=== PATIENT | male | born 1935 | race Caucasian/White ===

== ENCOUNTER 2016-11-13 22:09 | Inpatient (IN) | payer OTHER ==
[2016-11-13 22:24] VITALS: BMI 21.5
--- NOTE | 2016-11-13 23:37 | PDOC ---
History of Present Illness - General History Source: Patient, Family (Son) Exam Limitations: No Limitations - History of Present Illness Initial Comments: 11/14/16 00:14 The patient is an 81 year old male, with a significant past medical history of hypertension, diabetes, atrial fibrillation (on Warfarin) and coronary artery disease s/p stents, who presents to the emergency department with dizziness over the past couple of days. The patient describes the dizziness as if the room is spinning. The patient lives in [place] although he has been in [place] for the past 5 weeks visiting his son. The patient was scheduled to return to [place] tomorrow but given that he has been increasingly dizzy over the past couple of days, the patients son brought him to the ED for evaluation and cancelled his flight. The patients son is at the bedside. The patient endorses chills, a dry cough and nausea but denies any fevers, vomiting, diarrhea, dysuria or any recent illnesses. The patient reports that he has not been compliant with his Warfarin for the past 2 weeks because he ran out of it and was unable to refill it in [place]. Allergies: None reported. Past Surgical History: Cardiac Stent. Social History: Non smoker. Denies alcohol or drug use. PCP: In [place]. <Missy Rajan - Last Filed: 11/14/16 01:13> <Shalom Wells - Last Filed: 11/14/16 02:53> - General Chief Complaint: Lightheaded Stated Complaint: DIZZINESS Time Seen by Provider: 11/13/16 23:12 Past History <Missy Rajan - Last Filed: 11/14/16 01:13> - Past Medical History Cardiac Disorders: Yes Diabetes: Yes HTN: Yes - Psycho/Social/Smoking Cessation Hx Suicidal Ideation: No Smoking History: Never smoked Have you smoked in the past 12 months: No Information on smoking cessation initiated: No Hx Alcohol Use: No Drug/Substance Use Hx: No <Shalom Wells - Last Filed: 11/14/16 02:53> - Past Medical History Allergies/Adverse Reactions: Allergies Allergy/AdvReac Type Severity Reaction Status Date / Time No Known Allergies Allergy Verified 11/13/16 22:22 Home Medications: Ambulatory Orders Digoxin [Lanoxin -] 0.25 mg PO DAILY 11/14/16 Metformin HCl [Glucophage -] 850 mg PO DAILY 11/14/16 Metoprolol Succinate [Toprol Xl -] 50 mg PO DAILY 11/14/16 Review of Systems - Review of Systems Able to Perform ROS?: Yes Comments:: 11/14/16 00:15 CONSTITUTIONAL: +Chills. No fever, no fatigue EYES: No visual changes ENT: No ear pain, no sore throat CARDIOVASCULAR: No chest pain, no palpitations RESPIRATORY: +Cough. No SOB GI: +Nausea. No abdominal pain, no vomiting, no constipation, no diarrhea GENITOURINARY: No dysuria, no frequency, no hematuria MUSKULOSKELETAL: No back pain, no joint pain, no myalgias SKIN: No rash NEURO: +Dizziness, vertigo. No headache <Missy Rajan - Last Filed: 11/14/16 01:13> *Physical Exam - Vital Signs Last Vital Signs Temp Pulse Resp BP Pulse Ox 97.7 F 56 L 14 115/61 97 11/13/16 22:22 11/13/16 22:22 11/13/16 22:22 11/13/16 22:22 11/13/16 22:22 - Physical Exam Comments: 11/14/16 00:19 CONSTITUTIONAL: Well-appearing; well-nourished; in no apparent distress. HEAD: Normocephalic; atraumatic. EYES: No nystagmus. PERRL; EOM intact. ENMT: External appears normal; normal oropharynx. NECK: Supple; non-tender; no cervical lymphadenopathy. CARD: Irregularly irregular, tachycardic. Normal S1, S2; no murmurs, rubs, or gallops. RESP: Normal chest excursion with respiration; breath sounds clear and equal bilaterally; no wheezes, rhonchi, or rales. ABD: Soft, non-distended; non-tender; no palpable organomegaly, no palpable hernias. EXT: Normal ROM in all four extremities; non-tender to palpation; distal pulses intact. SKIN: Warm, dry, no rash. <Missy Rajan - Last Filed: 11/14/16 01:13> - Vital Signs Last Vital Signs Temp Pulse Resp BP Pulse Ox 97.7 F 56 L 14 115/61 97 11/13/16 22:22 11/13/16 22:22 11/13/16 22:22 11/13/16 22:22 11/13/16 22:22 - Physical Exam Comments: NEURO: Cranial nerves II through XII are grossly intact; motor is 5 of 54; no pronation drift; no dysmetria; finger to nose is normal bilaterally; heel-to- giron is normal bilaterally; gait-deferred. <Shalom Wells - Last Filed: 11/14/16 02:53> Heart Score/ECG Review #1 ECG reviewed & interpreted by me at: 00:29 (Vent Rate: 111 bpm. Atrial fibrillation with rapid ventricular response with premature ventricular or aberrantly conducted complexes. Nonspecific T wave abnormality.) <Missy Rajan - Last Filed: 11/14/16 01:13> ED Treatment Course - LABORATORY CBC & Chemistry Diagram: 11/14/16 00:45 11/14/16 00:45 <Missy Rajan - Last Filed: 11/14/16 01:13> - LABORATORY CBC & Chemistry Diagram: 11/14/16 00:45 11/14/16 00:45 <Shalom Wells - Last Filed: 11/14/16 02:53> Medical Decision Making - Medical Decision Making 11/14/16 02:42 Patient is an 81-year-old male with history of diabetes, and atrial fibrillation who presents with dizziness. Differential diagnoses includes vertigo versus near syncope. Patient reports intermittent vertiginous symptoms. In the ER, patient is awake and alert, mildly tachycardic with EKG revealing atrial fibrillation with ventricular rate of 111. Neuro exam reveals no focal deficits. There is no evidence of cerebellar dysfunction. CT of head shows no evidence of acute intracranial pathology. Chest x-ray reveals no evidence of cardiomegaly or infiltrate or effusion. CBC reveals moderate anemia with hematocrit of 25 (stool guaiac is currently pending). CMP reveals normal renal function and negative cardiac enzymes at this time. Patient has been noncompliant with his Coumadin regimen for the past 2 weeks. Will hold off on initiation of anticoagulation pending results of the stool guaiac. We will consider packed RBC transfusion. <Shalom Wells - Last Filed: 11/14/16 02:53> *DC/Admit/Observation/Transfer - Attestations Scribe Attestion: 11/13/16 23:41 Documentation prepared by Missy Rajan, acting as medical accounting clerk for Shalom Wells MD. <Missy Rajan - Last Filed: 11/14/16 01:13> - Discharge Dispostion Admit: Yes - Attestations Physician Attestion: 11/14/16 02:41 The documentation was prepared by the scribe under my direct supervision. I have reviewed the documentation which correctly represents the findings, medical decision-making and critical action taken by me. <Shalom Wells - Last Filed: 11/14/16 02:53> Diagnosis at time of Disposition: Pre-syncope, Vertigo Anemia Qualifiers: Anemia type: iron deficiency Iron deficiency anemia type: unspecified iron deficiency Qualified Code(s): D50.9 - Iron deficiency anemia, unspecified Atrial fibrillation Qualifiers: Atrial fibrillation type: chronic Qualified Code(s): I48.2 - Chronic atrial fibrillation - Discharge Dispostion Condition at time of disposition: Fair
[2016-11-14] MEDS ORDERED: SODIUM CHLORIDE 500 ML IV STA (00:49)
[2016-11-14 01:10] LABS: BASOPHIL 0.6 % (0-2.0); EOSINOPHIL 0.2 % (0-4.5); MCH 25.8 pg (25.7-33.7); MCHC 32.9 g/dl (32.0-35.9); MEAN CELL VOLUME 78.4 fl (80-96); NEUTROPHILS 83.7 % (42.8-82.8); PLATELET COUNT 411 K/MM3 (134-434); RDW 16.1 % (11.9-15.9); WHITE BLOOD COUNT 9.7 K/mm3 (4.0-10.0)
[2016-11-14 01:12] LABS: INR 1.89 (0.82-1.09); PROTHROMBIN TIME (PATIENT) 21.1 SEC (9.98-11.88)
[2016-11-14] MEDS ORDERED: MECLIZINE HCL 25 MG TABLET (FP) PO ONE (01:15)
[2016-11-14] MEDS ORDERED: MECLIZINE HCL 25 MG TABLET (FP) ONE (01:16)
[2016-11-14 01:24] LABS: ALBUMIN 2.3 g/dl (3.4-5.0); ANION GAP 9 (8-16); BILIRUBIN,TOTAL 0.3 mg/dL (0.2-1.0); CALCIUM 8.6 mg/dL (8.5-10.1); CO2 28 mmol/L (21-32); COCKROFT - GAULT 94.49; CREATININE 0.6 mg/dL (0.7-1.3); GLUCOSE,RANDOM 168 mg/dL (74-106); SGOT/AST 35 U/L (15-37); SGPT/ALT 66 U/L (12-78); TOT PROT 7.8 g/dl (6.4-8.2)
[2016-11-14 01:27] LABS: ALK PHOS 127 U/L (45-117); TROPONIN I < 0.02 ng/ml (0.00-0.05)
[2016-11-14] MEDS ORDERED: METOPROLOL TARTRATE 50 MG TABLET (FP) PO ONE (02:47)
[2016-11-14] MEDS ORDERED: METOPROLOL TARTRATE 25 MG TABLET (FP) ONE (03:02)
--- NOTE | 2016-11-14 03:20 | HP ---
CHIEF COMPLAINT: dizziness PCP: in [place] HISTORY OF PRESENT ILLNESS: This is a 81 year old male with a past medical history of atrial fibrillation, HTN, HLD, CAD s/p stent, DM, BPH who presents to the ED with c/o dizziness and not feeling well. Has been having intermittent episodes dizziness for the past couple of weeks. He is from [place] and is here visiting his son for the past 5 weeks. Son notes that pt does not drink well. Reports constipation at times. He is supposed to be on coumadin for his atrial fibrillation but he ran out 2 weeks ago and his doctor was unwilling to prescribe to [place]. Son reports that he notices his father has lost weight. He states he visits him every 2-3 months and noticed in August that he looked thinner from his previous visit in June. Pt reports that he weighed about 170 pounds in August and now weighs 148. He denies chest pain, SOB, palpitations, abdominal pain, hematochezia, melena, vomiting. ER course was notable for: (1) Hgb 8.4 (2) stool occ negative (3) CT head negative Recent Travel: traveled here from [place] 5 weeks ago PAST MEDICAL HISTORY: HTN HLD Atrial fibrillation on coumadin DM w/ neuropathy, previously on gabapentin but pt stopped as it wasn't helping CAD s/p stent x 1 BPH PAST SURGICAL HISTORY: L hernia repair Social History: Smoking: pt denies Alcohol: pt denies Drugs: pt denies Family History: father age 82, cancer, unknown type mother age 78, unknown etiology 11 brothers and sisters, no known medical problems Allergies No Known Allergies Allergy (Verified 11/13/16 22:22) Home Medications 3 Medication Instructions Recorded Digoxin [Lanoxin -] 0.25 mg PO DAILY 11/14/16 Finasteride 5 mg PO DAILY 11/14/16 Metformin HCl [Glucophage -] 850 mg PO DAILY 11/14/16 Metoprolol Succinate [Toprol Xl -] 50 mg PO DAILY 11/14/16 Simvastatin [Zocor] 80 mg PO HS 11/14/16 Tamsulosin HCl [Flomax] 0.4 mg PO DAILY 11/14/16 REVIEW OF SYSTEMS CONSTITUTIONAL: Present: generalized weakness, malaise, weight change Absent: fever, chills, diaphoresis, loss of appetite HEENT: Absent: rhinorrhea, nasal congestion, throat pain, throat swelling, difficulty swallowing, mouth swelling, ear pain, eye pain, visual changes CARDIOVASCULAR: Absent: chest pain, syncope, palpitations, irregular heart rate, lightheadedness , peripheral edema RESPIRATORY: Absent: cough, shortness of breath, dyspnea with exertion, orthopnea, wheezing, stridor, hemoptysis GASTROINTESTINAL: Absent: abdominal pain, abdominal distension, nausea, vomiting, diarrhea, constipation, melena, hematochezia GENITOURINARY: Absent: dysuria, frequency, urgency, hesitancy, hematuria, flank pain, genital pain MUSCULOSKELETAL: Absent: myalgia, arthralgia, joint swelling, back pain, neck pain SKIN: Absent: rash, itching, pallor HEMATOLOGIC/IMMUNOLOGIC: Absent: easy bleeding, easy bruising, lymphadenopathy, frequent infections ENDOCRINE: Absent: unexplained weight gain, unexplained weight loss, heat intolerance, cold intolerance NEUROLOGIC: Present: dizziness Absent: headache, focal weakness or paresthesias, unsteady gait, seizure, mental status changes, bladder or bowel incontinence PSYCHIATRIC: Absent: anxiety, depression, suicidal or homicidal ideation, hallucinations. PHYSICAL EXAMINATION Vital Signs - 24 hr 3 11/13/16 11/14/16 22:22 00:53 Temperature 97.7 F Pulse Rate 56 L Respiratory 14 Rate Blood Pressure 115/61 O2 Sat by Pulse 97 97 Oximetry (%) GENERAL: Awake, alert, and fully oriented, in no acute distress. Appears pale HEAD: Normal with no signs of trauma. EYES: Pupils equal, round and reactive to light, extraocular movements intact, sclera anicteric, conjunctiva pale, + watery, + crusting on eyelids EARS, NOSE, THROAT: Ears normal, nares patent, oropharynx clear without exudates. Moist mucous membranes. lips dry NECK: Normal range of motion, supple without lymphadenopathy, JVD, or masses. LUNGS: Breath sounds equal, clear to auscultation bilaterally. No wheezes, and no crackles. No accessory muscle use. HEART: Regular rate and rhythm, normal S1 and S2 without murmur, rub or gallop. ABDOMEN: Soft, nontender, not distended, normoactive bowel sounds, no guarding, no rebound, no masses. No hepatomegaly or splenomegaly. MUSCULOSKELETAL: Normal range of motion at all joints. No bony deformities or tenderness. No CVA tenderness. UPPER EXTREMITIES: 2+ pulses, warm, well-perfused. No cyanosis. No clubbing. No peripheral edema. LOWER EXTREMITIES: 2+ pulses, warm, well-perfused. No calf tenderness. No peripheral edema. NEUROLOGICAL: Cranial nerves II-XII intact. Normal speech. Gait not observed PSYCHIATRIC: Cooperative. Good eye contact. Appropriate mood and affect. SKIN: Warm, dry, normal turgor, no rashes or lesions noted, normal capillary refill. Laboratory Results - last 24 hr 3 11/14/16 11/14/16 11/14/16 11/14/16 00:45 00:45 00:45 02:45 WBC 9.7 RBC 3.26 L Hgb 8.4 L Hct 25.6 L MCV 78.4 L MCHC 32.9 RDW 16.1 H Plt Count 411 MPV 7.0 L Neutrophils % 83.7 H Lymphocytes % 10.0 Monocytes % 5.5 Eosinophils % 0.2 Basophils % 0.6 INR 1.89 H Sodium 137 Potassium 4.8 Chloride 100 Carbon Dioxide 28 Anion Gap 9 BUN 16 Creatinine 0.6 L Creat Clearance w eGFR > 60 Random Glucose 168 H Calcium 8.6 Total Bilirubin 0.3 AST 35 ALT 66 Alkaline Phosphatase 127 H Creatine Kinase 54 Troponin I < 0.02 Total Protein 7.8 Albumin 2.3 L Stool Occult Blood Negative CT brain without contrast EXAM DATE AND TIME: 2016-11-14 00:53:11.0 REASON FOR EXAM: Dizziness COMPARISON: No FINDINGS: Involutional changes. No hemorrhage. No mass. No visible acute infarct. Osseous structures are intact. --preliminary report from imaging colorectal surgeon Chest x-ray reveals no evidence of cardiomegaly or infiltrate or effusion. official read pending. ECG: Afib with RVR, rate 111, QTC 432, nonspecific T wave abnormality, no acute ST elevation or depression. 1 PVC ASSESSMENT/PLAN: 81yM with PMH Afib, HTN, HLD, CAD, DM, BPH presented with dizziness off and on for past 2-3 weeks and general malaise. He is being admitted for observation. Dizziness - none at present. - monitor on tele r/o ectopy, arrhythmia as etiology - trend troponin given CAD to r/o ACS Anemia - likely iron deficiency: low MCV, high RDW, iron studies ordered. - transfuse if Hgb less than 8 - in setting of weight loss need to r/o underlying malignancy, workup may be done as outpatient Hypovolemia - BUN/Cr ratio 26 - 500cc bolus NS given in ED - start NS @100cc/hr - monitor BMP Atrial fibrillation with RVR - given metoprolol 25mg x 1 in ED - monitor on tele - correct volume depletion - has been off coumadin. Given low h/h will defer restart at present Conjunctivitis - ? allergic vs. bacterial, start tobramycin, monitor response. HTN/CAD/HLD - cont home toprol, home simvastatin changed to formulary lipitor DM - hold metformin - BGM TIDAC & HS with novolog sliding scale BPH - pt stopped taking medications but reports poor urinary flow, starts and stops and hesitency - Restart prior home medications DVT PPX - low risk given expected LOS <48h, reassess if stays longer FEN - NS @ 100cc/hr for now, reassess during day - repeat BMP ordered for 7am - diabetic diet Dispo: Pt currently requires inpatient observation for his emergent condition. Visit type - Emergency Visit Emergency Visit: Yes ED Registration Date: 11/14/16 Care time: The patient presented to the Emergency Department on the above date and was hospitalized for further evaluation of their emergent condition. - New Patient This patient is new to me today: Yes Date on this admission: 11/14/16 - Critical Care Critical Care patient: No
[2016-11-14] MEDS ORDERED: SODIUM CHLORIDE 1,000 ML IV SCH (04:00)
[2016-11-14 06:37] LABS: BASOPHIL 0.5 % (0-2.0); EOSINOPHIL 0.8 % (0-4.5); MCH 25.9 pg (25.7-33.7); MCHC 32.7 g/dl (32.0-35.9); MEAN CELL VOLUME 79.3 fl (80-96); MEAN PLT VOLUME 6.8 fl (7.5-11.1); NEUTROPHILS 69.1 % (42.8-82.8); PLATELET COUNT 445 K/MM3 (134-434); RDW 16.3 % (11.9-15.9)
[2016-11-14] MEDS: INSULIN SLIDING SCALE (NOVOLOG) 1 VIAL SQ SCH ×4 (07:17→21:37)
[2016-11-14 07:19] LABS: ANION GAP 6 (8-16); CALCIUM 8.7 mg/dL (8.5-10.1); CO2 29 mmol/L (21-32); COCKROFT - GAULT 94.49; CREATININE 0.6 mg/dL (0.7-1.3); GLUCOSE,RANDOM 111 mg/dL (74-106); MAGNESIUM 2.3 mg/dL (1.8-2.4); PHOSPHOROUS 3.4 mg/dL (2.5-4.9)
[2016-11-14 07:22] LABS: TROPONIN I < 0.02 ng/ml (0.00-0.05)
[2016-11-14] MEDS ORDERED: TAMSULOSIN HCL 0.4 MG CAP.ER.24H (FP) ONE (09:15)
[2016-11-14] MEDS: TAMSULOSIN HCL 0.4 MG CAP.ER.24H (FP) PO SCH (09:18)
--- NOTE | 2016-11-14 09:18 | EKG ---
Test Reason : Blood Pressure : / mmHG Vent. Rate : 111 BPM Atrial Rate : 107 BPM P-R Int : 000 ms QRS Dur : 102 ms QT Int : 318 ms P-R-T Axes : 000 012 056 degrees QTc Int : 432 ms POOR DATA QUALITY, INTERPRETATION MAY BE ADVERSELY AFFECTED ATRIAL FIBRILLATION WITH RAPID VENTRICULAR RESPONSE WITH PREMATURE VENTRICULAR OR ABERRANTLY CONDUCTED COMPLEXES NONSPECIFIC T WAVE ABNORMALITY ABNORMAL ECG NO PREVIOUS ECGS AVAILABLE Confirmed by LETA MAY, RAUL ([id number]) on 11/14/2016 9:18:28 AM Referred By: Confirmed By:RAUL GILLETTE MD
[2016-11-14] MEDS ORDERED: DIGOXIN 0.25 MG TABLET (FP) ONE (10:40)
[2016-11-14] MEDS ORDERED: METOPROLOL SUCCINATE 50 MG TAB.SR.24H (FP) ONE (10:41)
[2016-11-14] MEDS: METOPROLOL SUCCINATE 50 MG TAB.SR.24H (FP) PO SCH (10:49)
[2016-11-14] MEDS: DIGOXIN 0.25 MG TABLET (FP) PO SCH (10:49)
[2016-11-14 14:04] LABS: TROPONIN I < 0.02 ng/ml (0.00-0.05)
--- NOTE | 2016-11-14 14:43 | CON.CARD ---
Consult Consult Specialty:: Cardiology Referred by:: Irma Kee NP Reason for Consultation:: Atrial Fibrillation, dizziness - History of Present Illness Chief Complaint: dizziness History of Present Illness: He is an 81 year old man history of hypertension, diabetes, atrial fibrillation (on Warfarin) and coronary artery disease s/p stent at [facility] [place] > 10 years ago without angina or CHF symptoms who ran out of coumadin 2 weeks ago while visiting from [place]. He has been taking metoprolol but is unclear about his compliance. He has had one day of postural dizziness described as lightheadedness and room spinning on standing. Better when supine. No other symptoms. Noted with severe anemia, and atrial fibrillation with mild elevation in VR. He admits to weight loss but denies change in appetite or abd pain. No brbpr. - History Source History Provided By: Patient, Medical Record Limitations to Obtaining History: No Limitations - Past Medical History Cardio/Vascular: Yes: AFIB, CAD, HTN, Hyperlipdemia Renal/: Yes: BPH Endocrine: Yes: Diabetes Mellitus - Past Surgical History Past Surgical History: Yes: Prostatectomy - Alcohol/Substance Use Hx Alcohol Use: No - Smoking History Smoking history: Never smoked Have you smoked in the past 12 months: No Home Medications - Allergies Allergies/Adverse Reactions: Allergies Allergy/AdvReac Type Severity Reaction Status Date / Time No Known Allergies Allergy Verified 11/13/16 22:22 - Home Medications Home Medications: Ambulatory Orders Digoxin [Lanoxin -] 0.25 mg PO DAILY 11/14/16 Finasteride 5 mg PO DAILY 11/14/16 Metformin HCl [Glucophage -] 850 mg PO DAILY 11/14/16 Metoprolol Succinate [Toprol Xl -] 50 mg PO DAILY 11/14/16 Simvastatin [Zocor] 80 mg PO HS 11/14/16 Tamsulosin HCl [Flomax] 0.4 mg PO DAILY 11/14/16 Review of Systems - Review of Systems Constitutional: reports: Unintentional Wgt. Loss Eyes: reports: No Symptoms HENT: reports: No Symptoms Neck: reports: No Symptoms Respiratory: reports: No Symptoms Gastrointestinal: reports: No Symptoms Genitourinary: reports: No Symptoms Musculoskeletal: reports: No Symptoms - Risk Factors Known Risk Factors: Yes: Diabetes Mellitus, Hypercholesterolemia, Hypertension Vital Signs: Vital Signs Temperature 97.7 F 11/13/16 22:22 Pulse Rate 78 11/14/16 14:34 Respiratory Rate 18 11/14/16 14:34 Blood Pressure 110/58 11/14/16 14:34 O2 Sat by Pulse Oximetry (%) 100 11/14/16 14:34 Constitutional: Yes: No Distress Eyes: Yes: WNL HENT: Yes: WNL Neck: Yes: WNL Respiratory: Yes: WNL Gastrointestinal: Yes: WNL Renal/: Yes: WNL Cardiovascular: Yes: Tachycardia, Pulse Irregular JVD: No Carotid Bruit: No PMI: Non-Displaced Heart Sounds: Yes: S1, S2 Murmur: Yes: Systolic Murmur, Grade 2 Musculoskeletal: Yes: WNL Extremities: Yes: WNL Edema: No Peripheral Pulses WNL: Yes Integumentary: Yes: WNL Neurological: Yes: WNL - Other Data Labs, Other Data: CBC, BMP 11/14/16 07:00 11/14/16 06:00 INR, PTT INR 1.89 (0.82-1.09) H 11/14/16 00:45 Troponin, BNP 11/14/16 11/14/16 06:00 13:08 Troponin I < 0.02 < 0.02 Troponin, BNP 11/14/16 11/14/16 06:00 13:08 Troponin I < 0.02 < 0.02 afib, HR 107, nssttw changes. Echo: Pending Imaging - Results Chest X-ray: Report Reviewed (IS[facility]) Cat Scan: Report Reviewed Problem List - Problems (1) Atrial fibrillation Assessment/Plan: Hold coumadin for now given anemia. Stool guaiac. Echo done results pending. Rates are controlled on medications. Can be admitted to med surg if no telemetry bed is available. restart dig, check level. restart metoprolol xl 50 mg daily. Code(s): I48.91 - UNSPECIFIED ATRIAL FIBRILLATION Qualifiers: Atrial fibrillation type: chronic Qualified Code(s): I48.2 - Chronic atrial fibrillation (2) Near syncope Assessment/Plan: Likely dehydration. Agree with IV fluids. Doubt Vertigo. CTH negative. check orthostatics, hold other bp medications not related to afib rate control. Would also get serial cbc given severe anemia. Code(s): R55 - SYNCOPE AND COLLAPSE
--- NOTE | 2016-11-14 16:48 | PN ---
Physical Exam: SUBJECTIVE: Patient seen and examined in ED. Awaiting bed assignment. OBJECTIVE: Vital Signs Period Temp Pulse Resp BP Sys/Mitchell Pulse Ox Last 24 Hr 98.6 F 78-109 18-20 110-123/58-77 98-100 GENERAL: The patient is awake, alert, and fully oriented, in no acute distress. HEAD: Normal with no signs of trauma. EYES: PERRL, extraocular movements intact, sclera anicteric, conjunctiva clear. No ptosis. LUNGS: Breath sounds equal, clear to auscultation bilaterally, no wheezes, no crackles, no accessory muscle use. HEART: Irregular. S1, S2 without murmur, rub or gallop. ABDOMEN: Soft, nontender, nondistended, normoactive bowel sounds, no guarding, no rebound, no hepatosplenomegaly, no masses. EXTREMITIES: 2+ pulses, warm, well-perfused, no edema. NEUROLOGICAL: Cranial nerves II through XII grossly intact. Normal speech, able to transfer from bed to chair with assistance. Laboratory Results - last 24 hr 11/14/16 11/14/16 11/14/16 02:55 03:45 06:00 WBC RBC Hgb Hct MCV MCHC RDW Plt Count MPV Neutrophils % Lymphocytes % Monocytes % Eosinophils % Basophils % Sodium 138 Potassium 4.7 Chloride 103 Carbon Dioxide 29 Anion Gap 6 L BUN 13 Creatinine 0.6 L POC Glucometer Random Glucose 111 H D Calcium 8.7 Phosphorus 3.4 Magnesium 2.3 Ferritin Creatine Kinase 64 Troponin I < 0.02 Blood Type A NEGATIVE A NEGATIVE Antibody Screen Negative 11/14/16 11/14/16 11/14/16 06:00 07:00 12:11 WBC 8.0 RBC 3.60 L Hgb 9.3 L D Hct 28.6 L MCV 79.3 L MCHC 32.7 RDW 16.3 H Plt Count 445 H MPV 6.8 L Neutrophils % 69.1 Lymphocytes % 21.7 D Monocytes % 7.9 Eosinophils % 0.8 D Basophils % 0.5 Sodium Potassium Chloride Carbon Dioxide Anion Gap BUN Creatinine POC Glucometer [phone] Random Glucose Calcium Phosphorus Magnesium Ferritin 864.482 H Creatine Kinase Troponin I Blood Type Antibody Screen 11/14/16 13:08 WBC RBC Hgb Hct MCV MCHC RDW Plt Count MPV Neutrophils % Lymphocytes % Monocytes % Eosinophils % Basophils % Sodium Potassium Chloride Carbon Dioxide Anion Gap BUN Creatinine POC Glucometer Random Glucose Calcium Phosphorus Magnesium Ferritin Creatine Kinase 54 Troponin I < 0.02 Blood Type Antibody Screen Current Medications Generic Name Dose Route Start Last Admin Trade Name Toney PRN Reason Stop Dose Admin Atorvastatin Calcium 40 mg 11/14/16 22:00 Lipitor - PO HS JULY Digoxin 0.25 mg 11/14/16 10:00 11/14/16 10:49 Lanoxin - PO 0.25 mg DAILY JULY Administration Insulin Aspart 1 vial 11/14/16 07:00 11/14/16 12:14 Novolog Vial Sliding Scale - SQ Not Given ACHS [facility] Protocol Metoprolol Succinate 50 mg 11/14/16 10:00 11/14/16 10:49 Toprol Xl - PO 50 mg DAILY JULY Administration Tamsulosin HCl 0.4 mg 11/14/16 08:30 11/14/16 09:18 Flomax - PO 0.4 mg DAILY@0830 [facility] Administration Tobramycin Sulfate 1 drop 11/14/16 14:00 Tobrex Ophthalmic Solution - OU TID [facility] Warfarin Sodium 5 mg 11/14/16 18:00 Coumadin - PO DAILY@1800 [facility] ASSESSMENT/PLAN 81 year-old man with a PMH of HTN, HLD, afib on coumadin, CAD s/p stents, NIDDM , and BPH. Admitted for episodes of dizziness. Atrial fibrillation with RVR --rate this afternoon as high as 150s with ambulation, to 130s at rest --will increase Toprol XL to 50mg BID --continue digoxin 0.25mg daily (dig level low normal) --INR 1.89, will dose coumadin 5mg tonight, recheck INR in am --telemetry monitoring Microcytic anemia --Hgb improved 8.4-->9.3, MCV 79 --iron studies pending --stool occult negative Dizziness/near syncope --CT head negative --troponins neg x 3 --CXR unremarkable --echo done, results pending --orthostatics negative after fluid resuscitation of 1.5L Hypertension --continue Toprol XL Hyperlipidemia --continue Lipitor BPH ---continue Flomax Conjunctivitis --Tobramycin opthalmic F/E/N Fluids: PO intake adequate Electrolytes: replete as indicated Nutrition: diabetic low sodium DVT prophylaxis: on coumadin, oob, ambulation PT evaluation Dispo: continues to require observation. Full code. Visit type - Emergency Visit Emergency Visit: Yes ED Registration Date: 11/14/16 Care time: The patient presented to the Emergency Department on the above date and was hospitalized for further evaluation of their emergent condition. - New Patient This patient is new to me today: Yes Date on this admission: 11/14/16 - Critical Care Critical Care patient: No
[2016-11-14] MEDS: TOBRAMYCIN 0.3% OPHTH SOLN 5 ML BOTTLE OU SCH ×2 (17:32→21:35)
[2016-11-14] MEDS: WARFARIN NA 5 MG TABLET (UD) PO SCH (17:32)
[2016-11-14] MEDS: ATORVASTATIN CA 40 MG TABLET (FP) PO SCH (21:35)
[2016-11-15] MEDS: INSULIN SLIDING SCALE (NOVOLOG) 1 VIAL SQ SCH ×4 (06:25→23:33)
[2016-11-15] MEDS: TOBRAMYCIN 0.3% OPHTH SOLN 5 ML BOTTLE OU SCH ×3 (06:40→23:30)
[2016-11-15 08:07] LABS: SERUM IRON 19 ug/dL (38-169); TOTAL IRON BINDING CAPACITY 134 ug/dL (250-450); UIBC 115 ug/dL (111-343)
[2016-11-15 08:15] LABS: BASOPHIL 0.3 % (0-2.0); EOSINOPHIL 1.3 % (0-4.5); MCH 25.9 pg (25.7-33.7); MCHC 32.8 g/dl (32.0-35.9); MEAN CELL VOLUME 78.9 fl (80-96); MEAN PLT VOLUME 6.7 fl (7.5-11.1); NEUTROPHILS 67.3 % (42.8-82.8); PLATELET COUNT 362 K/MM3 (134-434); RDW 16.4 % (11.9-15.9); WHITE BLOOD COUNT 7.1 K/mm3 (4.0-10.0)
[2016-11-15 08:36] LABS: INR 1.83 (0.82-1.09); PROTHROMBIN TIME (PATIENT) 20.4 SEC (9.98-11.88)
[2016-11-15 08:38] LABS: ANION GAP 8 (8-16); CALCIUM 7.8 mg/dL (8.5-10.1); CO2 26 mmol/L (21-32); COCKROFT - GAULT 113.39; CREATININE 0.5 mg/dL (0.7-1.3); GLUCOSE,RANDOM 81 mg/dL (74-106); MAGNESIUM 2.1 mg/dL (1.8-2.4); PHOSPHOROUS 3.2 mg/dL (2.5-4.9); SGOT/AST 30 U/L (15-37); SGPT/ALT 52 U/L (12-78)
[2016-11-15 08:39] LABS: ALK PHOS 106 U/L (45-117); BILIRUBIN,TOTAL 0.6 mg/dL (0.2-1.0); TOT PROT 6.8 g/dl (6.4-8.2)
[2016-11-15] MEDS: METOPROLOL SUCCINATE 50 MG TAB.SR.24H (FP) PO SCH (10:26)
[2016-11-15] MEDS: DIGOXIN 0.25 MG TABLET (FP) PO SCH (10:26)
[2016-11-15] MEDS: TAMSULOSIN HCL 0.4 MG CAP.ER.24H (FP) PO SCH (10:26)
--- NOTE | 2016-11-15 12:50 | PN ---
Progress Note, Physician Chief Complaint: no complaints History of Present Illness: He is an 81 year old man history of hypertension, diabetes, atrial fibrillation (on Warfarin) and coronary artery disease [place] [facility] [place] without angina or CHF symptoms who ran out of coumadin 2 weeks ago while visiting from [place]. He has been taking metoprolol but is unclear about his compliance. He has had one day of postural dizziness described as lightheadedness and room spinning on standing. Better when supine. No other symptoms. Noted with severe anemia, and atrial fibrillation with mild elevation in VR. He admits to weight loss but denies change in appetite or abd pain. No brbpr. Telemetry reviewed with mainly rate controlled atrial fibrillation. - Current Medication List Current Medications: Active Medications Atorvastatin Calcium (Lipitor -) 40 mg PO HS [facility] Last Admin: 11/14/16 21:35 Dose: 40 mg Digoxin (Lanoxin -) 0.25 mg PO DAILY [facility] Last Admin: 11/15/16 10:26 Dose: 0.25 mg Insulin Aspart (Novolog Vial Sliding Scale -) 1 vial SQ ACHS [facility] PRN Reason: Protocol Last Admin: 11/15/16 10:44 Dose: Not Given Metoprolol Succinate (Toprol Xl -) 50 mg PO DAILY [facility] Last Admin: 11/15/16 10:26 Dose: 50 mg Tamsulosin HCl (Flomax -) 0.4 mg PO DAILY@0830 [facility] Last Admin: 11/15/16 10:26 Dose: 0.4 mg Tobramycin Sulfate (Tobrex Ophthalmic Solution -) 1 drop OU TID [facility] Last Admin: 11/15/16 06:40 Dose: 1 drop Warfarin Sodium (Coumadin -) 5 mg PO DAILY@1800 [facility] Last Admin: 11/14/16 17:32 Dose: 5 mg - Objective Vital Signs: Vital Signs Temperature 98.6 F 11/15/16 10:00 Pulse Rate 108 H 11/15/16 10:26 Respiratory Rate 20 11/15/16 10:00 Blood Pressure 109/54 11/15/16 10:00 O2 Sat by Pulse Oximetry (%) 98 11/15/16 09:00 Eyes: Yes: WNL, Conjunctiva Clear HENT: Yes: WNL, Atraumatic, Normocephalic Neck: Yes: WNL, Supple, Trachea Midline Cardiovascular: Yes: WNL, Regular Rate and Rhythm, Pulse Irregular, S1, S2 Respiratory: Yes: WNL, Regular, CTA Bilaterally Gastrointestinal: Yes: WNL, Normal Bowel Sounds Musculoskeletal: Yes: WNL Extremities: Yes: WNL Edema: No Integumentary: Yes: WNL Neurological: Yes: WNL, Alert, Oriented ...Motor Strength: WNL Psychiatric: Yes: WNL Labs: CBC, BMP 11/15/16 06:05 11/15/16 06:05 INR, PTT INR 1.83 (0.82-1.09) H 11/15/16 06:05 Problem List - Problems (1) Atrial fibrillation Assessment/Plan: Coumadin restarted for INR 2-3. Echo normal EF, mild to moderate MR, mild AI/TR Rates are controlled on medications. Continue dig and metoprolol. Telemetry is properly controlled. Code(s): I48.91 - UNSPECIFIED ATRIAL FIBRILLATION Qualifiers: Atrial fibrillation type: chronic Qualified Code(s): I48.2 - Chronic atrial fibrillation (2) Near syncope Assessment/Plan: Likely dehydration. The patient is improved today. Doubt Vertigo. CTH negative. Anemia begum per hospitalist. Code(s): R55 - SYNCOPE AND COLLAPSE
[2016-11-15] MEDS: WARFARIN NA 5 MG TABLET (UD) PO SCH (18:05)
--- NOTE | 2016-11-15 18:14 | EKG ---
Test Reason : Blood Pressure : / mmHG Vent. Rate : 087 BPM Atrial Rate : 340 BPM P-R Int : 000 ms QRS Dur : 084 ms QT Int : 190 ms P-R-T Axes : 000 009 254 degrees QTc Int : 228 ms ATRIAL FIBRILLATION NONSPECIFIC T WAVE ABNORMALITY ABNORMAL ECG WHEN COMPARED WITH ECG OF 14-NOV-2016 00:29, NONSPECIFIC T WAVE ABNORMALITY NOW EVIDENT IN INFERIOR LEADS NONSPECIFIC T WAVE ABNORMALITY NOW EVIDENT IN ANTERIOR LEADS CLINICAL CORRELATION IS RECOMMENDED Confirmed by CARLOS MAY, CHRISTOPHER ([id number]) on 11/15/2016 6:13:54 PM Referred By: Linda DOLAN Confirmed By:CHRISTOPHER GONZALEZ MD
--- NOTE | 2016-11-15 19:42 | PN ---
Physical Exam: SUBJECTIVE: Patient seen and examined. Dizziness has resolved. OBJECTIVE: Vital Signs Period Temp Pulse Resp BP Sys/Mitchell Pulse Ox Last 24 Hr 98.2 F-98.8 F 89-108 18-20 109-125/50-90 97-98 GENERAL: The patient is awake, alert, and fully oriented, in no acute distress. HEAD: Normal with no signs of trauma. EYES: PERRL, extraocular movements intact, sclera anicteric, conjunctiva clear. No ptosis. LUNGS: Breath sounds equal, clear to auscultation bilaterally, no wheezes, no crackles, no accessory muscle use. HEART: Irregular. S1, S2 without murmur, rub or gallop. ABDOMEN: Soft, nontender, nondistended, normoactive bowel sounds, no guarding, no rebound, no hepatosplenomegaly, no masses. EXTREMITIES: 2+ pulses, warm, well-perfused, no edema. NEUROLOGICAL: Cranial nerves II through XII grossly intact. Normal speech, moving all extremities freely Laboratory Results - last 24 hr 11/14/16 11/15/16 11/15/16 21:36 05:29 06:05 WBC 7.1 RBC 3.10 L Hgb 8.0 L D Hct 24.5 L MCV 78.9 L MCHC 32.8 RDW 16.4 H Plt Count 362 MPV 6.7 L Neutrophils % 67.3 Lymphocytes % 20.1 Monocytes % 11.0 H Eosinophils % 1.3 Basophils % 0.3 INR Sodium Potassium Chloride Carbon Dioxide Anion Gap BUN Creatinine Creat Clearance w eGFR POC Glucometer 121 91 Random Glucose Calcium Phosphorus Magnesium Total Bilirubin AST ALT Alkaline Phosphatase Total Protein Albumin 11/15/16 11/15/16 11/15/16 06:05 06:05 10:40 WBC RBC Hgb Hct MCV MCHC RDW Plt Count MPV Neutrophils % Lymphocytes % Monocytes % Eosinophils % Basophils % INR 1.83 H Sodium 139 Potassium 4.4 Chloride 105 Carbon Dioxide 26 Anion Gap 8 BUN 9 D Creatinine 0.5 L Creat Clearance w eGFR > 60 POC Glucometer 118 Random Glucose 81 D Calcium 7.8 L Phosphorus 3.2 Magnesium 2.1 Total Bilirubin 0.6 D AST 30 ALT 52 D Alkaline Phosphatase 106 Total Protein 6.8 Albumin 2.0 L Active Medications Generic Name Dose Route Start Last Admin Trade Name Freq PRN Reason Stop Dose Admin Atorvastatin Calcium 40 mg 11/14/16 22:00 11/14/16 21:35 Lipitor - PO 40 mg HS JULY Administration Digoxin 0.25 mg 11/14/16 10:00 11/15/16 10:26 Lanoxin - PO 0.25 mg DAILY JULY Administration Insulin Aspart 1 vial 11/14/16 07:00 11/15/16 18:04 Novolog Vial Sliding Scale - SQ Not Given ACHS [facility] Protocol Metoprolol Succinate 50 mg 11/14/16 10:00 11/15/16 10:26 Toprol Xl - PO 50 mg DAILY JULY Administration Tamsulosin HCl 0.4 mg 11/14/16 08:30 11/15/16 10:26 Flomax - PO 0.4 mg DAILY@0830 JULY Administration Tobramycin Sulfate 1 drop 11/14/16 14:00 11/15/16 13:40 Tobrex Ophthalmic Solution - OU 1 drop TID JULY Administration Warfarin Sodium 5 mg 11/14/16 18:00 11/15/16 18:05 Coumadin - PO 5 mg DAILY@1800 JULY Administration ASSESSMENT/PLAN 81 year-old man with a PMH of HTN, HLD, afib on coumadin, CAD s/p stents, NIDDM , and BPH. Admitted for episodes of dizziness. Atrial fibrillation with RVR --rate controlled in 90's --continue Toprol XL to 50mg BID --continue digoxin 0.25mg daily (dig level low normal) --INR 1.83, dose coumadin 5mg tonight, recheck INR in am --continue telemetry monitoring Microcytic anemia --Hgb 8.0 (<--9.3) MCV 79 --iron studies pending --stool occult negative --will check on last EGD/colon --start feosol Near syncope --CT head negative --troponins neg x 3 --CXR unremarkable; CT chest ordered for chronic cough, concern for diastolic --11/14 echo: mild cLVH; LV function normal; RV normal; LAE; mild to moderate MR; mild TR; mild pHTN; mild AI --orthostatics negative Hypertension --continue Toprol XL Hyperlipidemia --continue Lipitor BPH ---continue Flomax Conjunctivitis --Tobramycin opthalmic F/E/N Fluids: PO intake adequate Electrolytes: replete as indicated Nutrition: diabetic low sodium DVT prophylaxis: on coumadin, oob, ambulation PT evaluation Dispo: continues to require observation. Full code. Visit type - Emergency Visit Emergency Visit: Yes ED Registration Date: 11/14/16 Care time: The patient presented to the Emergency Department on the above date and was hospitalized for further evaluation of their emergent condition. - New Patient This patient is new to me today: No - Critical Care Critical Care patient: No
[2016-11-15] MEDS: ATORVASTATIN CA 40 MG TABLET (FP) PO SCH (23:30)
[2016-11-16] MEDS: INSULIN SLIDING SCALE (NOVOLOG) 1 VIAL SQ SCH ×3 (06:04→16:59)
[2016-11-16] MEDS: TOBRAMYCIN 0.3% OPHTH SOLN 5 ML BOTTLE OU SCH ×2 (06:06→16:54)
[2016-11-16] MEDS: DIGOXIN 0.25 MG TABLET (FP) PO SCH (08:00)
[2016-11-16] MEDS: METOPROLOL SUCCINATE 50 MG TAB.SR.24H (FP) PO SCH (08:00)
[2016-11-16] MEDS: TAMSULOSIN HCL 0.4 MG CAP.ER.24H (FP) PO SCH (08:30)
[2016-11-16 08:48] LABS: BASOPHIL 0.4 % (0-2.0); EOSINOPHIL 1.3 % (0-4.5); MCHC 31.7 g/dl (32.0-35.9); MEAN CELL VOLUME 78.9 fl (80-96); MEAN PLT VOLUME 6.6 fl (7.5-11.1); NEUTROPHILS 67.7 % (42.8-82.8); PLATELET COUNT 372 K/MM3 (134-434); RDW 16.4 % (11.9-15.9); WHITE BLOOD COUNT 6.5 K/mm3 (4.0-10.0)
[2016-11-16 08:57] LABS: INR 1.93 (0.82-1.09); PROTHROMBIN TIME (PATIENT) 21.5 SEC (9.98-11.88)
[2016-11-16 09:29] LABS: ALBUMIN 2.1 g/dl (3.4-5.0); ALK PHOS 114 U/L (45-117); ANION GAP 9 (8-16); BILIRUBIN,TOTAL 0.4 mg/dL (0.2-1.0); CALCIUM 8.5 mg/dL (8.5-10.1); CO2 25 mmol/L (21-32); COCKROFT - GAULT 113.39; CREATININE 0.5 mg/dL (0.7-1.3); GLUCOSE,RANDOM 81 mg/dL (74-106); MAGNESIUM 2.3 mg/dL (1.8-2.4); SGOT/AST 27 U/L (15-37); SGPT/ALT 50 U/L (12-78); TOT PROT 7.3 g/dl (6.4-8.2)
[2016-11-16] MEDS: FERROUS SO4 325 MG TABLET (FP) PO SCH ×2 (11:11→16:55)
--- NOTE | 2016-11-16 11:54 | PN ---
Progress Note, Physician Chief Complaint: still dizziness and palpitations. Telemetry with episodes of af rvr. History of Present Illness: He is an 81 year old man history of hypertension, diabetes, atrial fibrillation (on Warfarin) and coronary artery disease [place] [facility] [place] without angina or CHF symptoms who ran out of coumadin 2 weeks ago while visiting from [place]. He has been taking metoprolol but is unclear about his compliance. He has had one day of postural dizziness described as lightheadedness and room spinning on standing. Better when supine. No other symptoms. Noted with severe anemia, and atrial fibrillation with mild elevation in VR. He admits to weight loss but denies change in appetite or abd pain. No brbpr. Telemetry reviewed with mainly rate controlled atrial fibrillation. - Current Medication List Current Medications: Active Medications Atorvastatin Calcium (Lipitor -) 40 mg PO HS [facility] Last Admin: 11/15/16 23:30 Dose: 40 mg Digoxin (Lanoxin -) 0.25 mg PO DAILY [facility] Last Admin: 11/16/16 08:00 Dose: 0.25 mg Ferrous Sulfate (Feosol -) 325 mg PO BIDWM [facility] Last Admin: 11/16/16 11:11 Dose: 325 mg Insulin Aspart (Novolog Vial Sliding Scale -) 1 vial SQ ACHS [facility] PRN Reason: Protocol Last Admin: 11/16/16 11:11 Dose: Not Given Metoprolol Succinate (Toprol Xl -) 50 mg PO DAILY [facility] Last Admin: 11/16/16 08:00 Dose: 50 mg Tamsulosin HCl (Flomax -) 0.4 mg PO DAILY@0830 [facility] Last Admin: 11/16/16 08:30 Dose: 0.4 mg Tobramycin Sulfate (Tobrex Ophthalmic Solution -) 1 drop OU TID [facility] Last Admin: 11/16/16 06:06 Dose: 1 drop Warfarin Sodium (Coumadin -) 5 mg PO DAILY@1800 [facility] Last Admin: 11/15/16 18:05 Dose: 5 mg - Objective Vital Signs: Vital Signs Temperature 97.6 F 11/16/16 05:50 Pulse Rate 160 H 11/16/16 08:00 Respiratory Rate 20 11/16/16 05:50 Blood Pressure 113/57 11/16/16 05:50 O2 Sat by Pulse Oximetry (%) 100 11/15/16 21:00 Constitutional: Yes: Well Nourished, No Distress Eyes: Yes: WNL HENT: Yes: WNL Neck: Yes: WNL Cardiovascular: Yes: WNL, Regular Rate and Rhythm, Tachycardia, Pulse Irregular , S1, S2 Respiratory: Yes: WNL Gastrointestinal: Yes: WNL ...Rectal Exam: Yes: Deferred Edema: No Peripheral Pulses WNL: Yes Labs: CBC, BMP 11/16/16 06:20 11/16/16 06:20 INR, PTT INR 1.93 (0.82-1.09) H 11/16/16 06:20 Problem List - Problems (1) Atrial fibrillation Assessment/Plan: Coumadin restarted for INR 2-3. Echo normal EF, mild to moderate MR, mild AI/TR Rates are controlled on medications. Continue dig and metoprolol. Telemetry still with RVR. Increase toprol xl to 100 mg daily. Code(s): I48.91 - UNSPECIFIED ATRIAL FIBRILLATION Qualifiers: Atrial fibrillation type: chronic Qualified Code(s): I48.2 - Chronic atrial fibrillation (2) Near syncope Assessment/Plan: Likely dehydration. The patient is improved today. Doubt Vertigo. CTH negative. Anemia begum per hospitalist. Code(s): R55 - SYNCOPE AND COLLAPSE
[2016-11-16] MEDS ORDERED: METOPROLOL SUCCINATE 50 MG TAB.SR.24H (FP) PO ONE (12:30)
[2016-11-16] MEDS: WARFARIN NA 5 MG TABLET (UD) PO SCH ×2 (16:55→16:59)
--- NOTE | 2016-11-16 17:55 | DS ---
Physical Exam: SUBJECTIVE: Patient seen and examined OBJECTIVE: Vital Signs Period Temp Pulse Resp BP Sys/Mitchell Pulse Ox Last 24 Hr 97.2 F-99 F 84-160 20-20 99-135/57-72 100 PHYSICAL EXAM GENERAL: The patient is awake, alert, and fully oriented, in no acute distress. HEAD: Normal with no signs of trauma. EYES: PERRL, extraocular movements intact, sclera anicteric, conjunctiva clear. No ptosis. LUNGS: Breath sounds equal, clear to auscultation bilaterally, no wheezes, no crackles, no accessory muscle use. HEART: Irregular. S1, S2 without murmur, rub or gallop. ABDOMEN: Soft, nontender, nondistended, normoactive bowel sounds, no guarding, no rebound, no hepatosplenomegaly, no masses. EXTREMITIES: 2+ pulses, warm, well-perfused, no edema. NEUROLOGICAL: Cranial nerves II through XII grossly intact. Normal speech, moving all extremities freely Laboratory Results - last 24 hr 11/15/16 11/16/16 11/16/16 23:31 05:47 06:20 WBC 6.5 RBC 3.37 L Hgb 8.4 L Hct 26.6 L MCV 78.9 L MCHC 31.7 L RDW 16.4 H Plt Count 372 MPV 6.6 L Neutrophils % 67.7 Lymphocytes % 19.3 Monocytes % 11.3 H Eosinophils % 1.3 Basophils % 0.4 INR Sodium Potassium Chloride Carbon Dioxide Anion Gap BUN Creatinine Creat Clearance w eGFR POC Glucometer 119 94 Random Glucose Calcium Magnesium Total Bilirubin AST ALT Alkaline Phosphatase Total Protein Albumin 11/16/16 11/16/16 11/16/16 06:20 06:20 16:56 WBC RBC Hgb Hct MCV MCHC RDW Plt Count MPV Neutrophils % Lymphocytes % Monocytes % Eosinophils % Basophils % INR 1.93 H Sodium 137 Potassium 4.4 Chloride 103 Carbon Dioxide 25 Anion Gap 9 BUN 8 Creatinine 0.5 L Creat Clearance w eGFR > 60 POC Glucometer 140 Random Glucose 81 Calcium 8.5 Magnesium 2.3 Total Bilirubin 0.4 D AST 27 ALT 50 Alkaline Phosphatase 114 Total Protein 7.3 Albumin 2.1 L HOSPITAL COURSE: Date of Admission:11/14/16 Date of Discharge: 11/16/16 81 year-old man with a PMH of HTN, HLD, afib on coumadin, CAD s/p stents, NIDDM , and BPH. Admitted for episodes of dizziness. Atrial fibrillation with RVR --on admission rate was observed has high as 150s; rate control achieved with titrating Toprol XL to 50mg BID --continued on digoxin 0.25mg daily (dig level low normal) --coumadin 5mg daily Microcytic iron-deficiency anemia --h/h stable --started on Feosol --stool occult negative Lightheadedness/Near syncope --CT head negative --troponins neg x 3 --CXR unremarkable --11/14 echo: mild cLVH; LV function normal; RV normal; LAE; mild to moderate MR; mild TR; mild pHTN; mild AI --orthostatics negative Hypertension --continued Toprol XL Hyperlipidemia --continued Lipitor BPH ---continued Flomax Conjunctivitis --Tobramycin opthalmic Minutes to complete discharge: 35 Discharge Summary Reason For Visit: NEAR SYNCOPE VERTIGO ANEMIA Current Active Problems Anemia (Acute) Atrial fibrillation (Acute) Near syncope (Acute) Vertigo (Acute) Condition: Improved - Instructions Diet, Activity, Other Instructions: A new prescription for Metoprolol ER has been sent to your pharmacy. You should now take this medicine twice a day (every 12 hours) instead of once a day. We have also sent a prescription for coumadin if you need it. Be sure to take this medication every day. You should have your INR checked in 48-72 hours, before you go back to [place]. Return to the emergency department for any new or worsening symptoms. Disposition: HOME - Home Medications Comprehensive Discharge Medication List: Ambulatory Orders Digoxin [Lanoxin -] 0.25 mg PO DAILY 11/14/16 Finasteride 5 mg PO DAILY 11/14/16 Simvastatin [Zocor] 80 mg PO HS 11/14/16 Tamsulosin HCl [Flomax -] 0.4 mg PO DAILY 11/14/16 Metformin HCl [Glucophage -] 850 mg PO DAILY #30 mg 11/16/16 Metoprolol Succinate [Toprol XL -] 50 mg PO Q12H #60 mg 11/16/16 Warfarin Na [Coumadin -] 5 mg PO DAILY@1800 #30 tablet 11/16/16 This patient is new to me today: No Emergency Visit: Yes ED Registration Date: 11/14/16 Care time: The patient presented to the Emergency Department on the above date and was hospitalized for further evaluation of their emergent condition. Critical Care patient: No - Discharge Referral Referred to [facility] No
[2016-11-16 19:35] VITALS: BP 101/60; PULSE 89; TEMP 97.7
[2016-11-17] MEDS ORDERED: METOPROLOL SUCCINATE 100 MG TAB.SR.24H (FP) PO SCH (10:00)
== END 2016-11-16 18:31 | disposition home or self-care (01) | DRG 641 ==
LOC: JER 22:09 → JERBED 11-14 02:53 → UNDOADMOB 11-14 03:00 → JERBED 11-14 03:00 → J4W 11-14 14:40 → OBSVTOIN 11-14 17:05
PROVIDERS: ADMIT Internal Medicine; ATTEND Nurse Practitioner Acute Care
DX: E86.0 Dehydration (principal); R42 Dizziness and giddiness; I10 Essential (primary) hypertension; N40.0 Benign prostatic hyperplasia without lower urinary tract symptoms; I25.10 Atherosclerotic heart disease of native coronary artery without angina pectoris; H10.89 Other conjunctivitis; D50.9 Iron deficiency anemia, unspecified; I48.2 Chronic atrial fibrillation; E11.40 Type 2 diabetes mellitus with diabetic neuropathy, unspecified; Z95.5 Presence of coronary angioplasty implant and graft; Z79.01 Long term (current) use of anticoagulants
CPT/HCPCS: 36415; 70450-TC; 71010-TC; 80048; 80053; 80162; 82272; 82550; 82728; 83540; 83550; 83735; 84100; 84484; 85025; 85610; 86850; 86900; 86901; 93005; 93010; 93306-TC; 97116-GP; 97161-GP; 99285-25; G0378